=== PATIENT | female | born 1990 | race Caucasian/White ===

== ENCOUNTER 2019-01-21 00:46 | Emergency (ER) | payer OTHER ==
[~2019-01-21] VITALS: Ht 152.4 cm; Wt 79.4 kg
[2019-01-21 00:46] VITALS: BP_SYST 116
[~2019-01-21 00:46] MED LIST: PREN1TAB49 PO; VICKS; robitussin
--- NOTE | 2019-01-21 00:46 | NUR ---
Pt placed to ER bed 03. 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 Swelling noted to lateral malleolus, no deformity. Strong pedal pulse with cap refil < 2 to nail beds. Denies hitting head, no LOC. Pt states that she tried soaking her left foot in [place] water. She then went to bed and tried to get up and unable to bear weight.
--- NOTE | 2019-01-21 01:10 | NUR ---
Dr. Campa at bedside.
[2019-01-21] MEDS ORDERED: IBUPROFEN 800 MG TABLET PO ONE (01:15)
--- NOTE | 2019-01-21 01:27 | NUR ---
X-ray at bedside.
--- NOTE | 2019-01-21 01:45 | NUR ---
Patient given written and verbal discharge instructions and verbalizes understanding. ER MD discussed with patient the results and treatment provided. Patient in stable condition. ID arm band removed. Rx of Motrin given. Patient educated on pain management and to follow up with PMD. Pain Scale 3/10. Opportunity for questions provided and answered. Medication side effect fact sheet provided.
== END 2019-01-21 01:45 | disposition home or self-care (01) ==
LOC: SED 00:46
DX: S93.402A Sprain of unspecified ligament of left ankle, initial encounter (principal); J45.909 Unspecified asthma, uncomplicated; Z88.5 Allergy status to narcotic agent; Z91.013 Allergy to seafood; Z79.899 Other long term (current) drug therapy; W18.39XA Other fall on same level, initial encounter; Y93.89 Activity, other specified; Y92.89 Other specified places as the place of occurrence of the external cause; Y99.8 Other external cause status
CPT/HCPCS: 99283

== ENCOUNTER 2019-12-06 21:49 | Emergency (ER) | payer OTHER ==
[~2019-12-06] VITALS: Ht 152.4 cm; Wt 86.2 kg
[2019-12-06 21:56] VITALS: BP_SYST 128
[2019-12-06 23:15] VITALS: BP_SYST 131
[2019-12-06] MEDS ORDERED: CYCLOBENZAPRINE HCL 10 MG TABLET (FLEXERIL) PO ONE (23:15)
[2019-12-06] MEDS ORDERED: KETOROLAC TROMETHAMINE 30 MG VIAL IM ONE (23:15)
== END 2019-12-06 23:15 | disposition home or self-care (01) ==
LOC: SED 21:49
DX: M54.5 Low back pain (principal); J45.909 Unspecified asthma, uncomplicated; Z88.6 Allergy status to analgesic agent; Z91.013 Allergy to seafood; Z88.8 Allergy status to other drugs, medicaments and biological substances
CPT/HCPCS: 96372; 99283; J1885